=== PATIENT | female | born 1975 | race Caucasian/White ===

== ENCOUNTER 2023-11-13 17:41 | Observation (INO) ==
--- NOTE | 2023-11-13 17:51 | ED Triage Note ---
Date of Service November 13, 2023 Provider in Triage Author: William Rushing. History of Present Illness This patient was briefly evaluated while in triage. An abbreviated physical exam was performed. This patient is a 48-year-old Female who presents to the ED for evaluation of sudden onset chest pain that radiated to the back with nausea. started when she was driving to dinner. 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 Physical Exam CONSTITUTIONAL: mildly uncomfortable SKIN: pink, warm, dry CARDIAC: regular rate and rhythm RESPIRATORY: in no respiratory distress, lungs clear to auscultation ABDOMEN: mild epigastric tenderness Initial orders for labs and / or imaging were placed and patient was placed in the waiting area until a bed is available. Please see further documentation for the full ED course.
[2023-11-13] MEDS: NITROGLYCERIN SL 0.4 MG/TAB TAB SL STA (18:03)
[2023-11-13] MEDS: NITROGLYCERIN SL 0.4 MG/TAB TAB ONE (18:03)
[2023-11-13] MEDS: ASPIRIN CHEW 324 MG PO STA (18:04)
[2023-11-13 18:30] LABS: Basophils # (auto) 0.06 K/uL (0.00-0.20); Basophils % (auto) 0.8 %; Eosinophils # (auto) 0.35 K/uL (0.00-0.50); Eosinophils % (auto) 4.4 %; Hematocrit (blood only) 38.2 % (37.0-47.0); Hemoglobin 13.3 g/dl (12.0-16.0); Immature Granulocytes # (auto) 0.01 K/uL (0.01-0.20); Immature Granulocytes % (auto) 0.1 %; Lymphocytes # (auto) 2.59 K/uL (1.20-3.40); Lymphocytes % (auto) 32.6 %; Mean Corpuscular Hemoglobin 33.3 pg (25.0-34.0); Mean Corpuscular Hgb Conc 34.8 g/dL (32.0-36.0); Mean Corpuscular Volume 95.5 fL (80.0-100.0); Mean Platelet Volume 9.7 fL (9.4-12.4); Monocytes # (auto) 0.57 K/uL (0.11-0.59); Monocytes % (auto) 7.2 %; Neutrophils # (auto) 4.37 K/uL (1.40-6.50); Neutrophils % (auto) 54.9 %; Platelet Count 297 K/uL (130-400); RDW Coefficient of Variation 11.3 % (11.5-14.5); RDW Standard Deviation 39.7 fL (36.4-46.3); White Blood Count 7.95 K/ul (4.8-10.8)
[2023-11-13 18:43] LABS: Pregnancy Test, Serum Negative (Negative)
--- NOTE | 2023-11-13 18:51 | XRay Report ---
XR chest 1V portable HISTORY: central chest pain COMPARISON: None. FINDINGS: The lungs are clear. Cardiac silhouette is normal in size. No pleural effusions. No pneumot horax. IMPRESSION: No acute process. ACT 112: Negative or not required by law. Electronically signed by: Colton Keith M.D. 11/13/2023 6:50 PM
[2023-11-13 18:52] LABS: Alanine Aminotransferase 18 U/L (7-52); Albumin Level 4.7 gm/dl (3.4-5.0); Alkaline Phosphatase 41 U/L (34-104); Anion Gap 10 (3-11); Aspartate Aminotransferase 22 U/L (13-39); BUN Creatinine Ratio 38.8 (10-20); Bilirubin,Total 0.3 mg/dl (0.2-1.0); Blood Urea Nitrogen 26 mg/dl (6-23); Calcium 9.2 mg/dl (8.6-10.3); Carbon Dioxide 26 mmol/L (21-32); Chloride 102 mmol/L (98-107); Creatinine Clr Calc Pharmacy 96.7 ml/min; Est GFR (African American) 121.3 ml/min; Est GFR (Non-African American) 104.7 ml/min; Globulin 2.4 gm/dl (2.5-4.0); Glucose 112 mg/dl (70-99(Fasting)); Lipase 48 U/L (11-82); Potassium 3.1 mmol/L (3.5-5.1); Sodium 138 mmol/L (136-145); Total Protein 7.1 gm/dl (6.0-8.3)
[2023-11-13 18:58] LABS: D Dimer 340 ug/L FEU (0-500); Partial Thromboplastin Ratio 0.8; Partial Thromboplastin Time 22 Seconds (21-31); Prothrombin Time 11.1 Seconds (9.0-12.0); Troponin I High Sensitivity < 2.3 pg/ml (0-14)
[2023-11-13] MEDS ORDERED: ACETAMINOPHEN 325 MG TAB PO PRN (20:05)
--- NOTE | 2023-11-13 20:49 | History & Physical Report ---
Date of Service November 13, 2023 Assessment & Plan (1) Chest pain: Plan: 48 year old for mari female with history fo WPW syndrome, prothrombin gene mutation, presenting with chest pain earlier today. Chest pain History of WPW syndrome Rule out ACS history of CAD, maternal grandfather, age early 50s Reports chest pain was relieved by sublingual nitro given at the ER troponin x 1 negative, second troponin pending EKG no signs of acute ischemia or infarct Echocardiogram: pending Cardiology consultation Rule out pulmonary embolus history of prothrombin gene mutation CT Angio chest to rule out PE IV NSS possible GERD? Protonix 40mg daily Hypokalemia p.o. potassium ordered DVT prophylaxis SCDs for now Lovenox SC if patient staying longer in the hospital Disposition Lives at home with family plan of care discussed with patient and her in detail and at length all questions answered they are understanding, agreeable, comfortable with the plan of care History of Present Illness Chief Complaint: sudden onset chest pain Earlier today Primary Care Provider: Katja Amor DO 48 year old for mari female with history fo WPW syndrome, prothrombin gene mutation, presenting with chest pain earlier today. As a background, patient has WPW syndrome for which an EP study was done in 2016 which suggested that the accessory bypass tract conduction was benign. She follows with Dr. Davis and Dr. Best at the [facility] [address] cardiology clinic. As per patient, she normally has episodes of few seconds of palpitations daily without any accompanying symptoms. Earlier this evening, while preparing to leave the house, patient had a sudden onset of severe lower midsternal chest discomfort- sharp/pressure, associated with shortness of breath, nausea and dizziness to the point that she felt she was going to pass out. As the symptoms did not improve after about 10 minutes, the patient was brought to the ER for evaluation. At the ER, patient received with Blood pressure of 109/71, heart rate 65. EKG no signs of acute ischemia or infarct Troponin negative She was given 1 dose of sublingual nitro which relieved the chest pain. She also received aspirin 2024 mg. On exam, patient seen resting in bed, sitting up, comfortable,not in distress. She denies active chest pain, shortness of breath, palpitations, dizziness, nausea, abdominal pain during my interview. Of noted, the patient reports that she has been taking 2-3 doses of naproxen for the past 3 to 4 days for menstrual cramping and headache. Allergies Allergy/AdvReac Type Severity Reaction Status Date / Time No Known Allergies Allergy Unverified 11/13/23 20:07 Home Medications Medication Instructions Recorded Confirmed Type cetirizine 10 mg tablet (Zyrtec) 10 mg PO DAILY PRN allergies 11/13/23 11/13/23 History multivitamin-ferrous 1 tab PO DAILY 11/13/23 11/13/23 History fumarate-folic acid 18 mg-400 mcg tablet (Centrum) naproxen sodium 220 mg tablet 440 mg PO BID PRN Pain 11/13/23 11/13/23 History (Aleve) sertraline 50 mg tablet 50 mg PO DAILY 11/13/23 11/13/23 History Past Med/Surg History Problem List (Updated 11/13/23 @ 21:19 by Brian Henriquez MD) Chest pain Social History Smoking Status: Never smoker Preferred Language: Serbian Feels Safe at Home: Yes Review of Systems Review of Systems: all noted and negative except for above Physical Exam Physical Exam: General- oriented x 3, not in distress, speaks in sentences with no effort or accessory muscle use Head- atraumatic Eyes- PERRL, EOMI, anicteric ENT- oropharynx clear Neck- supple, no JVD, no adenopathy, no thyromegaly; carotids +2/2, no bruits appreciated Lungs- clear to auscultation bilaterally, no rales/wheezes Heart- normal rate, regular rhythm; no murmur, no gallop, no rub appreciated Abdomen- normal bowel sounds, nondistended, soft, nontender, no masses or hepatosplenomegaly Extremities- no pretibial edema, no calf tenderness; peripheral pulses intact Neuro- alert, oriented x 3; CN 2-12 grossly intact; motor 5/5 bilaterally;sensation 100% on all extremities; no other gross focal neurologic deficits Skin- warm & dry Results & Data Results & Data Vital Signs (Past 12 Hours) Vital Signs Temp Pulse Resp BP Pulse Ox O2 Del Method 11/13/23 19:48 60 13 100/48 L 100 Room Air 11/13/23 19:15 59 L 15 100 11/13/23 19:14 92/66 L 11/13/23 18:48 56 L 15 97 Room Air 11/13/23 18:33 59 L 15 100 11/13/23 18:30 100/68 11/13/23 18:24 59 L 14 100 11/13/23 18:20 74 11/13/23 18:15 94/66 L 100 11/13/23 18:15 59 L 15 100 11/13/23 18:06 74 15 100 11/13/23 17:47 Room Air 11/13/23 17:47 36.3 C L 65 18 109/71 100 Room Air all noted and reviewed including below Code Status & VTE Plan VTE Prophylaxis Plan VTE Prophylaxis will be ordered: Yes
[2023-11-13] MEDS: OPTIRAY 320 125ml IV ONE (21:07)
--- NOTE | 2023-11-13 21:46 | Emergency Department Note ---
History of Present Illness General Chief Complaint: Cardiac Assessment Stated Complaint: CHEST PAINS, NAUSEA, SWEATING, SHAKIING Time Seen by Provider: 11/13/23 17:57 History of Present Illness Provider Complaint: chest pain Onset (ago): minute(s) 20 Duration: constant Onset: during rest Pain Radiation: none Severity: moderate Maximum Pain Intensity: 5 Current Pain Intensity: 3 Quality: + heaviness and + sharp Relieved By: + nothing Exacerbated By: + nothing Context: no recent illness, no recent surgery, no recent immobilization, no recent travel, no trauma/injury or no new medications Associated symptoms: no nausea, no diaphoresis, no dyspnea, no syncope, no palpitations, no fever or no cough Home Medications Medication Instructions Recorded Confirmed Type cetirizine 10 mg tablet (Zyrtec) 10 mg PO DAILY PRN allergies 11/13/23 11/13/23 History multivitamin-ferrous 1 tab PO DAILY 11/13/23 11/13/23 History fumarate-folic acid 18 mg-400 mcg tablet (Centrum) naproxen sodium 220 mg tablet 440 mg PO BID PRN Pain 11/13/23 11/13/23 History (Aleve) sertraline 50 mg tablet 50 mg PO DAILY 11/13/23 11/13/23 History Allergies Allergy/AdvReac Type Severity Reaction Status Date / Time No Known Allergies Allergy Unverified 11/13/23 20:07 Past Med/Surg History Problem List (Updated 11/13/23 @ 21:46 by Silver Cheatham MD) Chest pain (Acute) Medical History WPW (Shaoz-Yzbopwvtm-Javbg syndrome) Social History Smoking Status: Never smoker Preferred Language: Romanian Feels Safe at Home: Yes Physical Exam Vital Signs Vital Signs - 24 hr 11/13/23 17:47 11/13/23 17:47 11/13/23 18:06 Temperature 36.3 C L Temperature Source Temporal Artery Scan Pulse Rate 65 74 Pulse Rate from SpO2 Sensor 75 Pulse Rhythm Regular Pulse Strength Normal Respiratory Rate 18 15 Respiratory Effort / Characteristics Non-Labored Spontaneous Respiratory Depth Normal Respiratory Pattern Regular Blood Pressure 109/71 Blood Pressure Mean 83 Blood Pressure Position Sitting Pulse Oximetry 100 100 Oxygen Delivery Method Room Air Room Air Sepsis Recent Fever Within 48 Hours No Sepsis New/Unexplained Change in Mental Status No Sepsis Action Taken by Nursing No Action Required 11/13/23 18:15 11/13/23 18:15 11/13/23 18:20 Temperature Temperature Source Pulse Rate 59 L 74 Pulse Rate from SpO2 Sensor 58 L Pulse Rhythm Pulse Strength Respiratory Rate 15 Respiratory Effort / Characteristics Respiratory Depth Respiratory Pattern Blood Pressure 94/66 L Blood Pressure Mean 79 Blood Pressure Position Pulse Oximetry 100 100 Oxygen Delivery Method Sepsis Recent Fever Within 48 Hours Sepsis New/Unexplained Change in Mental Status Sepsis Action Taken by Nursing 11/13/23 18:24 11/13/23 18:30 11/13/23 18:33 Temperature Temperature Source Pulse Rate 59 L 59 L Pulse Rate from SpO2 Sensor 58 L 57 L Pulse Rhythm Pulse Strength Respiratory Rate 14 15 Respiratory Effort / Characteristics Respiratory Depth Respiratory Pattern Blood Pressure 100/68 Blood Pressure Mean 81 Blood Pressure Position Pulse Oximetry 100 100 Oxygen Delivery Method Sepsis Recent Fever Within 48 Hours Sepsis New/Unexplained Change in Mental Status Sepsis Action Taken by Nursing 11/13/23 18:48 11/13/23 19:14 11/13/23 19:15 Temperature Temperature Source Pulse Rate 56 L 59 L Pulse Rate from SpO2 Sensor 56 L 58 L Pulse Rhythm Pulse Strength Respiratory Rate 15 15 Respiratory Effort / Characteristics Respiratory Depth Respiratory Pattern Blood Pressure 92/66 L Blood Pressure Mean 73 Blood Pressure Position Pulse Oximetry 97 100 Oxygen Delivery Method Room Air Sepsis Recent Fever Within 48 Hours Sepsis New/Unexplained Change in Mental Status Sepsis Action Taken by Nursing 11/13/23 19:48 Temperature Temperature Source Pulse Rate 60 Pulse Rate from SpO2 Sensor 61 Pulse Rhythm Pulse Strength Respiratory Rate 13 Respiratory Effort / Characteristics Respiratory Depth Respiratory Pattern Blood Pressure 100/48 L Blood Pressure Mean 65 Blood Pressure Position Pulse Oximetry 100 Oxygen Delivery Method Room Air Sepsis Recent Fever Within 48 Hours Sepsis New/Unexplained Change in Mental Status Sepsis Action Taken by Nursing Physical Exam GENERAL: oriented to person, place, and time. appears well-developed and well- nourished. HENT: Exam performed. - Head: Normocephalic and atraumatic. EYES: Conjunctivae and EOM are normal. Right eye exhibits no discharge. Left eye exhibits no discharge. No scleral icterus. NECK: Normal range of motion. Neck supple. No JVD present. CV: Normal rate, regular rhythm, normal heart sounds and intact distal pulses. There is no peripheral edema. Palpable radial pulses bue. PULM/CHEST: Effort normal and breath sounds normal. No respiratory distress. No stridor. no wheezes. no rales. ABD: The abdomen is soft. There is no tenderness. NEURO: Motor and sensation grossly intact. SKIN: Skin is warm and dry. He is not diaphoretic. PSYCH: normal mood and affect. Behavior is normal. Judgment and thought content normal. Course Course 1756: The patient was evaluated in room B1. A complete history and physical exam was performed Cardiac monitoring: An order was placed for continuous cardiac monitoring. The monitor shows a rate of 60 with sinus rhythm interpreted by me 1810: Vital signs stable. Chest pain resolved status post 1 sublingual nitroglycerin. EKG viewed by me does not show any STEMI. Discussed with Dr. Fong interventional cardiology via Silvis text and he is in agreement no STEMI. 1939: Vital signs stable. Labs and imaging within normal limits including negative chest x-ray D-dimer troponin. Patient be admitted for rule out ACS given her acute onsets of chest pain and resolvent of systems with nitroglycerin. [facility] hospitalist team will be made aware. Administered Medications Discontinued Medications Aspirin (Aspirin Chew 324 Mg) 324 mg PO NOW STA Stop: 11/13/23 18:02 Last Admin: 11/13/23 18:04 Dose: 324 mg Documented By: HAIDER Ioversol (Optiray 320 125ml) 117 ml IV ONCE ONE Stop: 11/13/23 21:06 Last Admin: 11/13/23 21:07 Dose: 117 ml Documented By: YOBANI Nitroglycerin (Nitroglycerin Sl 0.4 Mg/Tab Tab) 0.4 mg SL NOW STA Stop: 11/13/23 18:02 Last Admin: 11/13/23 18:03 Dose: 0.4 mg Documented By: HAIDER Nitroglycerin (Nitroglycerin Sl 0.4 Mg/Tab Tab) Confirm Administered Dose 0.4 mg .ROUTE .STK-MED ONE Stop: 11/13/23 18:02 Last Admin: 11/13/23 18:03 Dose: Not Given Documented By: HAIDER Medical Decision Making Laboratory Data Attestation: I reviewed the patient's lab results. 11/13/23 18:04 11/13/23 18:04 Labs: Lab Results 11/13/23 11/13/23 Range/Units 18:04 20:11 WBC 7.95 (4.8-10.8) K/ul RBC 4.00 L (4.20-5.40) M/uL Hgb 13.3 (12.0-16.0) g/dl Hct 38.2 (37.0-47.0) % MCV 95.5 (80.0-100.0) fL MCH 33.3 (25.0-34.0) pg MCHC 34.8 (32.0-36.0) g/dL RDW Std Deviation 39.7 (36.4-46.3) fL RDW Coeff of Skylar 11.3 L (11.5-14.5) % Plt Count 297 (130-400) K/uL MPV 9.7 (9.4-12.4) fL Immature Gran % (Auto) 0.1 % Neut % (Auto) 54.9 % Lymph % (Auto) 32.6 % Eaton % (Auto) 7.2 % Eos % (Auto) 4.4 % Baso % (Auto) 0.8 % Neut # (Auto) 4.37 (1.40-6.50) K/uL Lymph # (Auto) 2.59 (1.20-3.40) K/uL Eaton # (Auto) 0.57 (0.11-0.59) K/uL Eos # (Auto) 0.35 (0.00-0.50) K/uL Baso # (Auto) 0.06 (0.00-0.20) K/uL Immature Gran # (Auto) 0.01 (0.01-0.20) K/uL PT 11.1 (9.0-12.0) Seconds INR 1.0 (0.9-1.1) APTT 22 (21-31) Seconds PTT Ratio 0.8 D-Dimer 340 (0-500) ug/L FEU Sodium 138 (136-145) mmol/L Potassium 3.1 L (3.5-5.1) mmol/L Chloride 102 (98-107) mmol/L Carbon Dioxide 26 (21-32) mmol/L Anion Gap 10 (3-11) BUN 26 H (6-23) mg/dl Creatinine 0.67 (0.6-1.2) mg/dl Est Cr Clr Drug Dosing 96.7 ml/min Est GFR ( Amer) 121.3 ml/min Est GFR (Non-Af Amer) 104.7 ml/min BUN/Creatinine Ratio 38.8 H (10-20) Glucose 112 H (70-99(Fasting)) mg/dl Calcium 9.2 (8.6-10.3) mg/dl Total Bilirubin 0.3 (0.2-1.0) mg/dl AST 22 (13-39) U/L ALT 18 (7-52) U/L Alkaline Phosphatase 41 (34-104) U/L Troponin I High Sens < 2.3 < 2.3 (0-14) pg/ml Total Protein 7.1 (6.0-8.3) gm/dl Albumin 4.7 (3.4-5.0) gm/dl Globulin 2.4 L (2.5-4.0) gm/dl Albumin/Globulin Ratio 2.0 (0.9-2) Lipase 48 (11-82) U/L HCG, Qual Negative (Negative) Imaging Data Chest x-ray: Attestation: I personally reviewed and interpreted this imaging study as follows: My impression: Chest x-ray negative. Airway clear. No pneumothorax. No consolidation. No cardiomegaly or cephalization.. No free air under the diaphragm. No fractures of the skeletal structures. Radiologist's impression: XR chest 1V portable HISTORY: central chest pain COMPARISON: None. FINDINGS: The lungs are clear. Cardiac silhouette is normal in size. No pleural effusions. No pneumothorax. IMPRESSION: No acute process. ACT 112: Negative or not required by law. Electronically signed by: Colton Keith M.D. 11/13/2023 6:50 PM Dictated: 11/13/231848 Transcribed: 11/13/231848 ECG Data Attestation: I personally reviewed and interpreted this ECG as follows: Additional Comments: EKG #1 at 1754: Sinus rhythm with a rate of 56. CT 200 QRS [address] elevation or ST depression. WPW delta wave present. EKG #2 at 1800: Sinus rhythm with a rate of 61. CT 190 QRS [address] elevation or ST depression. WPW delta wave present. [facility] Narrative 1757: The patient was evaluated in room B1. A complete history and physical exam was performed Cardiac monitoring: An order was placed for continuous cardiac monitoring. The monitor shows a rate of 60 with sinus rhythm interpreted by me 1810: Vital signs stable. Chest pain resolved status post 1 sublingual nitroglycerin. EKG viewed by me does not show any STEMI. Discussed with Dr. Fong interventional cardiology via Silvis text and he is in agreement no STEMI. 1939: Vital signs stable. Labs and imaging within normal limits including negative chest x-ray D-dimer troponin. Patient be admitted for rule out ACS given her acute onsets of chest pain and resolvent of systems with nitroglycerin. [facility] hospitalist team will be made aware. Impression & Plan Chest pain Discharge Plan Visit Data Chief Complaint: Cardiac Assessment Stated Complaint: CHEST PAINS, NAUSEA, SWEATING, SHAKIING ED Provider: Silver Cheatham Discharge Problem: Chest pain Patient Disposition: Being Evaluated by Hospitalist Forms Stand Alone Forms: [facility] Prescriptions Prescriptions: No Action cetirizine [Zyrtec] 10 mg Tablet 10 mg PO DAILY PRN (Reason: allergies) naproxen sodium [Aleve] 220 mg Tablet 440 mg PO BID PRN (Reason: Pain) sertraline 50 mg tablet 50 mg PO DAILY Centrum 18-400 mg-mcg Tablet 1 tab PO DAILY Referrals Referrals: Katja Amor DO [Primary Care Provider] - Discharge Problem: Chest pain Qualifiers: Chest pain type: unspecified Qualified Code(s): R07.9 - Chest pain, unspecified
[2023-11-13] MEDS ORDERED: SODIUM CHLORIDE 0.9% 1,000 ML IV SCH (21:52)
--- NOTE | 2023-11-13 22:22 | CT Scan Report ---
CT angio chest PE protocol CLINICAL HISTORY: PE TECHNIQUE: Multidetector row helical CT of the chest was performed with angiographic protocol. Francisco l and sagittal reformations were obtained. Coronal and sagittal MIPS were obtained from the axial quincy a set and were submitted for review. Automated dose lowering techniques and/or adjustment according to patient size were utilized for this exam. CT DOSE: 461.61 mGy.cm Comparison: Comparison is made to chest radiograph 11/13/2023 FINDINGS: Lungs and pleura: Normal. Heart and pericardium: Heart size is normal. No pericardial effusion. Vessels: No evidence of pulmonary embolism. Mediastinum and criss: Unremarkable. Chest wall and lower neck: Unremarkable. Abdomen: Unremarkable. Bones: Degenerative changes in the thoracic spine. IMPRESSION: No acute abnormality and in particular no evidence of pulmonary embolus. ACT 112: Negative or not required by law. Electronically signed by: Gabriele Ronquillo M.D. 11/13/2023 10:19 PM
[2023-11-13] MEDS: POTASSIUM CHLORIDE CRTAB 20 MEQ TABCR PO STA (22:30)
[2023-11-13] MEDS: PANTOprazole 40 MG TAB PO STA (22:30)
[2023-11-13] MEDS: NSS + 20MEQ KCL 20 MEQ/1,000 ML BAG IV SCH (22:30)
--- OUTSIDE RECORDS SUMMARY | 2023-11-13 23:09 | External Medical Summary | Continuity of Care Document ---
Author Name Unknown Organization [facility] [address] [place], [place] [address] Address [address] [place] [id number] Care Team Providers Care Supervisor Rough End Name Role Phone Katja Amor Primary Care Physician [phone] Encounter [facility] [id number] Date(s): 08/10/23 - 08/10/23 [facility] [address] [id number] [facility] [address] [place], [place] [id number] Encounter Diagnosis Carpal tunnel syndrome, bilateral(Discharge Diagnosis) - 08/10/23 Cubital tunnel syndrome, bilateral(Discharge Diagnosis) - 08/10/23 Discharge Disposition: Home or Self Care Attending Physician: MD Brizuela Paul K Allergies, Adverse Reactions, Alerts No Known Allergies Assessment and Plan Extracted from: Title:Jeffrey Birzuela Author:Rob Grimes Date:08/10/23 IMPRESSION:48 Yearsold Femalewith b/l carpal tunnel syndrome and suspected cubital tunnel syndrome PLAN: - I ordered an EMG/NCS of the b/l upper extremities to further evaluate carpal/ cubital tunnel. - I discussed that surgical intervention may be needed pending the EMG result. -Follow up after EMG results Medications No Known Medications Mental Status 08/10/23 Barriers to Learning one year None evide nt Mandatory Health Literacy Documentation Yes Health Literacy Communication Barriers N ever Primary Language Spanish Problem List Condition Confirmation Course Effective Dates Status Health St atus Informant Hip pain, left Confirmed Active Knee pain, left Confirmed Active Diagnosis Diagnosis Type Effective Dates Health Status Cl inical Service Informant Cubital tunnel syndrome, bilateral Discharge Diagnosis 08/10/23 Carpal tunnel syndrome, bilateral Discharge Diagnosis 08/10/23 Social History Social History Type Response Smoking Status Never smoked cigaret nelson Sex Female Ortho Outpt Note * MD Brizuela Paul K: MODIFY MD Brizuela Paul K: MODIFY, MODIFY Event Display: Ortho Outpt Note Authored Date: [id number] Chief Complaint b/l wrist numbness/ tingling History of Present Illness [id number] yearold Mono presents today forevaluation of her b/l hand symptoms. She has b/l hand numbness starting 16 years ago. She has continued to have these issues and notices increase in symptoms when . She notices symptoms throughout her daily activities. 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 She has cramping when attempting to write. The numbness is primarily in the first4 fingers (thumb through ring). She has no history of Thyroid disorders or DM. Review of Systems A 14 point review of systems isavailable in the EMR. Physical Exam Focus on the bilateral upper extremity: No skin lesions Mild thenar atrophy left more than right No hypothenar atrophy Sensation intact to light touch throughout RIGHT: + Tinel's at the carpal tunnel Elbow flexion test causes median nerve symptoms, no ulnar nerve symptoms + Tinel's at the cubital tunnel LEFT: + Tinel's at the carpal tunnel Decreased sensation in the ulnar nerve distribution No ulnar nerve subluxation at the elbow Elbow flexion test causes median nerve symptoms, no ulnar nerve symptoms + Tinel's at the cubital tunnel Diagnostic Results I obtained and personally interpreted 4 views of both wrist which shows no fractures, no ligament instability and no arthritis. Assessment/Plan IMPRESSION:48 YearsoldFejess b/l carpal tunnel syndrome and suspected cubital tunnel syndrome PLAN: - I ordered an EMG/NCS of the b/l upper extremities to further evaluate carpal/ cubital tunnel. - I discussed that surgical intervention may be needed pending the EMG result. -Follow up after EMG results Attestation Rob Palacios, scribing for and in the presence of, Jeffrey Brizuela, on this date,08/10/2023 09:28:06. Problem List/Past Medical History Ongoing Hip pain, left Knee pain, left Allergies NKA Social History Smoking Status Never smoked cigarettes Recommendations Health Maintenance Pending(in the next year) OverDue Adult Influenza Vaccine due12/11/22and every 1year Due Adult COVID-19 Vaccination due08/10/23Unknown Frequency Adult Social Determinants of Health Screening due08/10/23Unknown Frequency Adult Tdap/Td Vaccine due08/10/23Unknown Frequency Breast Cancer Screening due08/10/23Unknown Frequency Cervical Cancer Screening due08/10/23Unknown Frequency Colorectal Cancer Screening due08/10/23Unknown Frequency Hepatitis C Screening due08/10/23One-time only Lipid Screening due08/10/23Unknown Frequency Due In Future Body Mass Index not due until05/05/24and every 366day Satisfied(in the past 1 year) Satisfied Body Mass Index on05/05/23.Satisfied by ISA Schmidt [place] Electronic Signature on File Electronically Reviewed/Signed by: oRb Grimes Author Signature Dt/Tm:08/10/2023 10:43 AM Electronically Reviewed/Signed by: Jeffrey Brizuela MD Cosigner Signature Dt/Tm: 08/10/2023 12:50PM Division of Sports Medicine DS Patient Care team information Care Team Personnel Name: DO Amor Laura M Position: Referring DIRECT Member Role: Primary Care Provider Address: Address: [facility] [address] [place] [address] Care Team Related Persons Name: ROSINAMECHELLE HELENA Address: home [address] [place] [id number]
--- NOTE | 2023-11-14 06:58 | Cardiology Consultation ---
Date of Consultation November 14, 2023 Assessment & Plan (1) Pericarditis: (2) Chest pain: (3) WPW (Zrbqw-Cwwpleuum-Veupi syndrome): Plan IMPRESSION: 48-year-old female with history of Wtwho-Hqbtbkaxs-Ktymu with prior EP study, no ablation presents with new onset chest pain EKG revealing sinus bradycardia in the mid 50s with a short IL interval and delta wave. EKG unchanged from 2017. 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 -Monitor on telemetry while inpatient. -Recommend potassium goal of 4.0 and mag goal of 2.0. -Echo pending -Repeat outpatient ZIO monitor. -Current chest discomfort is reproducible with palpation however symptoms are different than what she experienced yesterday, questionable musculoskeletal component to some of her discomfort. Case discussed with Dr. Spears. Further recommendations pending assessment. I spent a total of 60 minutes on the date of service in preparation, delivery, and documentation of the care provided to the patient excluding any time spent in the performance of separately billed services. NORA Lazaro Department of Cardiology, [facility] This chart was completed in part utilizing Speech Voice Recognition Software. Grammatical errors, random word insertions, pronoun errors, and incomplete sentences are an occasional consequence of this system due to software limitations, ambient noise, and hardware issues. Any formal questions or concerns about the content, text, or information contained within the body of this dictation should be directly addressed to the provider for clarification. Supervising Physician Co-Signing Physician Notes I have personally performed a history and physical examination on the patient. I have reviewed the advance practitioner's documentation, and I agree with, and take responsibility for the plan of care. 48-year-old female admitted with acute chest discomfort. Pain severe, sharp, substernal discomfort improved since admission. Continues to note a dull ache that is somewhat reproducible with palpation. Echocardiogram demonstrating trivial loculated anterior pericardial effusion. Findings suggest acute pericarditis. Lab assessment including CRP, Lyme screen, viral panel, TSH, SAVITA, and rheumatoid factor ordered. Recommend treatment with taper of NSAIDs and colchicine 0.6 mg once daily. Ibuprofen taper: 600 mg 3 times daily for 2 days then reduce dose to 400 mg 3 times daily for 3 days, followed by 400 mg twice daily for 3 days, reduce dose to 200 mg twice daily for 3 days then discontinue. Continue colchicine daily for 3 months. Outpatient cardiology follow-up in 5 to 7 days. I spent a total of 40 minutes on the date of service in preparation, delivery, and documentation of the care provided to this patient, excluding any time spent in the performance of separately billed services. History of Present Illness Reason for Consultation: Chest pain Requesting Physician: [facility] Attending Physician: Brian Henriquez MD History of Present Illness 48-year-old female who presented to [facility] emergency department yesterday after an episode of chest discomfort. Notes that she was in her normal state of health yesterday morning and afternoon. Did a Peloton workout with cardio and light weight training. She does this a few days per week. Later that evening she was driving to dinner and developed a sudden onset of chest discomfort that occurred in the middle of her chest that radiated to her back with nausea and slight SOB. At the time she was a little lightheaded and felt as though she may pass out. She denied noticing any palpitations at the time however it is not unusual for her to have daily palpitations/fluttering. Symptoms are sometimes worse with exercise. Labs: CBC unremarkable. Renal function stable. Potassium low at 3.1. High-sensitivity troponin negative x 2. CTA of the chest without evidence of PE EKG: Sinus bradycardia 56 bpm with short IL interval and delta wave, unchanged from prior EKG in 2017. Echo: Pending Telemetry: SR 60s 11/14/2023: Upon entrance to the room patient resting comfortably in bed. Continues to have slight chest heaviness. If she presses on the spot in her chest it is somewhat tender. No shortness of breath. Did have palpitations last evening. None this morning. No lightheadedness or dizziness. No orthopnea, PND, or increased lower extremity edema. No fever, chills, cough, hematochezia, melena, or hemoptysis. Past medical history: Palpitations Ihhmu-Lwqkerbti-Pzafc syndrome; status post EP study--conduction both antegrade and retrograde along the pathway, felt to be benign and ablation was not warranted at that time (per Dr. Best's outpatient note 2016) History of vasovagal syncope Prothrombin gene mutation Family history of coronary disease Allergies Allergy/AdvReac Type Severity Reaction Status Date / Time No Known Allergies Allergy Unverified 11/13/23 20:07 Home Medications Medication Instructions Recorded Confirmed Type cetirizine 10 mg tablet (Zyrtec) 10 mg PO DAILY PRN allergies 11/13/23 11/13/23 History multivitamin-ferrous 1 tab PO DAILY 11/13/23 11/13/23 History fumarate-folic acid 18 mg-400 mcg tablet (Centrum) naproxen sodium 220 mg tablet 440 mg PO BID PRN Pain 11/13/23 11/13/23 History (Aleve) sertraline 50 mg tablet 50 mg PO DAILY 11/13/23 11/13/23 History Patient History Medical History WPW (Ngyyl-Iphzlxujs-Crjvz syndrome) Social History Smoking Status: Never smoker Hx Alcohol Use: No Hx Substance Use: No Preferred Language: Tajik Communication Ability: Effective [employer] Required: No Beliefs That Will Affect Care: None Current Living Situation: Spouse Feels Safe at Home: Yes Safety Concerns: Feels Safe At This Time Assistive Devices: None Review of Systems Review of Systems: All systems reviewed & are unremarkable except as noted in HPI & below Physical Exam Constitutional: WD/WN, vitals as above no acute distress Eyes: PERRL, conjunctivae normal, anicteric sclerae ENMT: external ear and nose normal, oropharynx normal Neck: normal visual inspection and trachea midline Respiratory: normal respiratory effort, lungs clear to auscultation Cardiovascular: RRR, no murmur, no edema Heart Sounds: normal S1 and normal S2; no murmur Vessels: no JVD Gastrointestinal (Abdomen): normal bowel sounds, soft, nontender, no hepatosplenomegaly Skin: no rashes, warm and dry Neurologic: PERRL, EOMI, accommodation nl, no face palsy, no dysarthria Psychiatric: A+Ox3, euthymic affect Results & Data Vital Signs (Past 12 Hours) Vital Signs Temp Pulse Pulse Pulse Resp BP BP 11/14/23 02:27 36.8 C 56 L 16 96/61 L 11/14/23 00:07 11/14/23 00:05 36.7 C 61 18 117/74 11/14/23 00:00 67 11/13/23 22:52 36.4 C L 77 18 114/69 11/13/23 22:15 74 11/13/23 19:48 60 13 100/48 L 11/13/23 19:15 59 L 15 11/13/23 19:14 92/66 L Pulse Ox O2 Del Method 11/14/23 02:27 97 Room Air 11/14/23 00:07 Room Air 11/14/23 00:05 99 Room Air 11/14/23 00:00 11/13/23 22:52 99 Room Air 11/13/23 22:15 11/13/23 19:48 100 Room Air 11/13/23 19:15 100 11/13/23 19:14 Laboratory Results Cardiac Enzymes 11/13/23 11/13/23 Range/Units 18:04 20:11 AST 22 (13-39) U/L Troponin I High Sens < 2.3 < 2.3 (0-14) pg/ml Coagulation 11/13/23 Range/Units 18:04 PT 11.1 (9.0-12.0) Seconds APTT 22 (21-31) Seconds CBC 11/13/23 Range/Units 18:04 WBC 7.95 (4.8-10.8) K/ul RBC 4.00 L (4.20-5.40) M/uL Hgb 13.3 (12.0-16.0) g/dl Hct 38.2 (37.0-47.0) % Plt Count 297 (130-400) K/uL Neut # (Auto) 4.37 (1.40-6.50) K/uL Lymph # (Auto) 2.59 (1.20-3.40) K/uL Fleming # (Auto) 0.57 (0.11-0.59) K/uL Eos # (Auto) 0.35 (0.00-0.50) K/uL Baso # (Auto) 0.06 (0.00-0.20) K/uL Comprehensive Metabolic Panel 11/13/23 Range/Units 18:04 Sodium 138 (136-145) mmol/L Potassium 3.1 L (3.5-5.1) mmol/L Chloride 102 (98-107) mmol/L Carbon Dioxide 26 (21-32) mmol/L BUN 26 H (6-23) mg/dl Creatinine 0.67 (0.6-1.2) mg/dl Glucose 112 H (70-99(Fasting)) mg/dl Calcium 9.2 (8.6-10.3) mg/dl AST 22 (13-39) U/L ALT 18 (7-52) U/L Alkaline Phosphatase 41 (34-104) U/L Total Protein 7.1 (6.0-8.3) gm/dl Albumin 4.7 (3.4-5.0) gm/dl Intake and Output 11/13/23 11/14/23 11/14/23 22:59 06:59 14:59 Other: Other Intake Source sips # Unmeasured Voids 1 Weight 68.9 kg Weight Measurement Method Built in [facility] Diagnostic Findings Echo 11/14/2023: Pending (1) Pericarditis Pericarditis type: idiopathic Chronicity: acute Qualified Code(s): I30.0 - Acute nonspecific idiopathic pericarditis (2) Chest pain Chest pain type: unspecified Qualified Code(s): R07.9 - Chest pain, unspecified
[2023-11-14] MEDS: PANTOprazole 40 MG TAB PO SCH (08:02)
[2023-11-14] MEDS: SERTRALINE HCL 50 MG TABLET PO SCH (08:02)
[2023-11-14 09:18] LABS: Hemoglobin 12.3 g/dl (12.0-16.0); Mean Corpuscular Hemoglobin 33.2 pg (25.0-34.0); Mean Corpuscular Hgb Conc 34.2 g/dL (32.0-36.0); Mean Corpuscular Volume 97.3 fL (80.0-100.0); Mean Platelet Volume 9.6 fL (9.4-12.4); Platelet Count 243 K/uL (130-400); RDW Coefficient of Variation 11.7 % (11.5-14.5); RDW Standard Deviation 41.5 fL (36.4-46.3); White Blood Count 6.76 K/ul (4.8-10.8)
[2023-11-14 09:34] LABS: Anion Gap 4 (3-11); Blood Urea Nitrogen 17 mg/dl (6-23); Calcium 8.4 mg/dl (8.6-10.3); Carbon Dioxide 26 mmol/L (21-32); Chloride 110 mmol/L (98-107); Creatinine Clr Calc Pharmacy 102.8 ml/min; Est GFR (African American) 123.8 ml/min; Est GFR (Non-African American) 106.8 ml/min; Glucose 129 mg/dl (70-99(Fasting)); Potassium 4.1 mmol/L (3.5-5.1); Sodium 140 mmol/L (136-145)
[2023-11-14 12:32] LABS: C Reactive Protein < 0.50 mg/dl (0-0.5)
[2023-11-14 12:51] LABS: Thyroid Stimulating Hormone 1.071 uIu/ml (0.300-4.500)
[2023-11-14] MEDS: COLCHICINE 0.6 MG TAB PO SCH (13:39)
[2023-11-14] MEDS: IBUPROFEN 600 MG TAB PO SCH (13:39)
--- NOTE | 2023-11-14 13:51 | Hospitalist Progress Note ---
Date of Service November 14, 2023 Assessment & Plan (1) Chest pain: Plan: 48 year old pleasant female with history of WPW syndrome, prothrombin gene mutation, presenting with chest pain earlier today. Chest pain Pericarditis History of WPW syndrome history of CAD, maternal grandfather, age early 50s Reports chest pain was relieved by sublingual nitro given at the ER troponin x2 negative EKG no signs of acute ischemia or infarct Echocardiogram noting PFO, "trivial" loculated pericardial effusion Chest CTA no pE Cardiology consultation, appreciate recs -ordered labs in followup: CRP (wnl), Lyme screen (negative), viral panel (negative), TSH (wnl), SAVITA (pending), rheumatoid factor (pending) -Recommending treatment with taper of NSAIDs and colchicine 0.6 mg once daily. -Ibuprofen taper: 600 mg 3 times daily for 2 days then reduce dose to 400 mg 3 times daily for 3 days, followed by 400 mg twice daily for 3 days, reduce dose to 200 mg twice daily for 3 days then discontinue. -Continue colchicine daily for 3 months. -Outpatient cardiology follow-up in 5 to 7 days. Continue PPI while on NSAIDs/colchicine Hypokalemia Replete as needed Diet: HH DVT prophylaxis: Lovenox SQ Dispo: Home once medically stable Admission and Anticipated Discharge Date Admission Date: November 13, 2023 Subjective pt was seen sitting in chair at bedside. States that her chest pain has resolved, denies repeat episodes of sweating and SOB. Review of Systems Review of Systems: All systems reviewed & are unremarkable except as noted in Subjective Physical Exam Physical Exam: General: Alert, oriented. No acute distress Skin: No noted rashes or bruises Psych: Appropriate mood and affect HEENT: NC/AT CV: RRR Resp: Breath sounds clear bilaterally, no increased effort of breathing. Abdomen: Soft, nontender, nondistended. Extremities: No edema in lower extremities bilaterally. Results & Data Results & Data Vital Signs (Past 12 Hours) Vital Signs Temp Pulse Pulse Resp BP Pulse Ox O2 Del Method 11/14/23 12:06 37.0 C 64 18 108/69 97 Room Air 11/14/23 07:51 36.7 C 67 16 94/59 L 98 Room Air 11/14/23 07:00 58 L 11/14/23 02:27 36.8 C 56 L 16 96/61 L 97 Room Air Diagnostic Findings Chest X-Ray 11/13/23 17:47 XR chest 1V portable HISTORY: central chest pain COMPARISON: None. FINDINGS: The lungs are clear. Cardiac silhouette is normal in size. No pleural effusions. No pneumothorax. IMPRESSION: No acute process. ACT 112: Negative or not required by law. Electronically signed by: Colton Keith M.D. 11/13/2023 6:50 PM Chest CTA 11/13/23 20:45 CT angio chest PE protocol CLINICAL HISTORY: PE TECHNIQUE: Multidetector row helical CT of the chest was performed with angiographic protocol. Coronal and sagittal reformations were obtained. Coronal and sagittal MIPS were obtained from the axial data set and were submitted for review. Automated dose lowering techniques and/or adjustment according to patient size were utilized for this exam. CT DOSE: 461.61 mGy.cm Comparison: Comparison is made to chest radiograph 11/13/2023 FINDINGS: Lungs and pleura: Normal. Heart and pericardium: Heart size is normal. No pericardial effusion. Vessels: No evidence of pulmonary embolism. Mediastinum and criss: Unremarkable. Chest wall and lower neck: Unremarkable. Abdomen: Unremarkable. Bones: Degenerative changes in the thoracic spine. IMPRESSION: No acute abnormality and in particular no evidence of pulmonary embolus. ACT 112: Negative or not required by law. Electronically signed by: Gabriele Ronquillo M.D. 11/13/2023 10:19 PM (1) Chest pain Chest pain type: unspecified Qualified Code(s): R07.9 - Chest pain, unspecified
[2023-11-14 15:00] LABS: Adenovirus PCR Not Detected (NotDetected); Bordetella parapertussis PCR Not Detected (NotDetected); Bordetella pertussis PCR Not Detected (NotDetected); Chlamydia pneumoniae PCR Not Detected (NotDetected); Coronavirus 229E PCR Not Detected (NotDetected); Coronavirus CoV-2 (COVID19)PCR Not Detected (NotDetected); Coronavirus HKU1 PCR Not Detected (NotDetected); Coronavirus NL63 PCR Not Detected (NotDetected); Coronavirus OC43PCR Not Detected (NotDetected); Human Metapneumovirus PCR Not Detected (NotDetected); Influenza A PCR Not Detected (NotDetected); Influenza B PCR Not Detected (NotDetected); Mycoplasma pneumoniae PCR Not Detected (NotDetected); Parainfluenza Virus 1 PCR Not Detected (NotDetected); Parainfluenza Virus 2 PCR Not Detected (NotDetected); Parainfluenza Virus 3 PCR Not Detected (NotDetected); Parainfluenza Virus 4 PCR Not Detected (NotDetected); Respiratory Syncytial VirusPCR Not Detected (NotDetected); Rhinovirus/Enterovirus PCR Not Detected (NotDetected)
[2023-11-14] MEDS: ENOXAPARIN INJ 40 MG/0.4 ML SYR SQ SCH (20:21)
--- NOTE | 2023-11-15 06:03 | Electrocardiogram Report ---
Test Reason : Blood Pressure : / mmHG Vent. Rate : 056 BPM Atrial Rate : 056 BPM P-R Int : 200 ms QRS Dur : 080 ms QT Int : 432 ms P-R-T Axes : 181 004 163 degrees QTc Int : 416 ms Sinus bradycardia Ventricular pre-excitation, WPW pattern Abnormal ECG No previous ECGs available Confirmed by Sanchez Srivastava ([id number]) on 11/15/2023 6:02:50 AM Referred By: Katja Amor Confirmed By:Sanchez Srivastava
--- NOTE | 2023-11-15 06:04 | Electrocardiogram Report ---
Test Reason : Blood Pressure : / mmHG Vent. Rate : 061 BPM Atrial Rate : 061 BPM P-R Int : 068 ms QRS Dur : 076 ms QT Int : 420 ms P-R-T Axes : 175 -04 162 degrees QTc Int : 422 ms Sinus rhythm with short AK Ventricular pre-excitation, WPW pattern Anterior infarct (cited on or before 13-NOV-2023) Abnormal ECG When compared with ECG of 13-NOV-2023 17:54, No significant change Confirmed by Sanchez Srivastava ([id number]) on 11/15/2023 6:04:03 AM Referred By: Katja Amor Confirmed By:Sanchez Srivastava
--- NOTE | 2023-11-15 06:05 | Electrocardiogram Report ---
Test Reason : Blood Pressure : / mmHG Vent. Rate : 073 BPM Atrial Rate : 073 BPM P-R Int : 072 ms QRS Dur : 086 ms QT Int : 418 ms P-R-T Axes : 000 -28 170 degrees QTc Int : 460 ms Sinus rhythm with short VT with sinus arrhythmia Ventriculare pre-excitation, WPW pattern Possible Inferior infarct Possible Anterior infarct Abnormal ECG When compared with ECG of 13-NOV-2023 18:00, No significant change Confirmed by Sanchez Srivastava ([id number]) on 11/15/2023 6:05:41 AM Referred By: Katja Amor Confirmed By:Sanchez Srivastava
--- NOTE | 2023-11-15 06:06 | Electrocardiogram Report ---
Test Reason : Blood Pressure : / mmHG Vent. Rate : 057 BPM Atrial Rate : 057 BPM P-R Int : 080 ms QRS Dur : 136 ms QT Int : 504 ms P-R-T Axes : 025 -16 071 degrees QTc Int : 490 ms Sinus bradycardia with short TN Non-specific intra-ventricular conduction block Ventricular pre-excitation, WPW pattern Abnormal ECG When compared with ECG of 13-NOV-2023 20:50, No significant change Confirmed by Sanchez Srivastava ([id number]) on 11/15/2023 6:06:19 AM Referred By: Katja Amor Confirmed By:Sanchez Srivastava
[2023-11-15 06:31] LABS: Basophils # (auto) 0.03 K/uL (0.00-0.20); Basophils % (auto) 0.6 %; Eosinophils # (auto) 0.26 K/uL (0.00-0.50); Eosinophils % (auto) 4.8 %; Hematocrit (blood only) 32.8 % (37.0-47.0); Hemoglobin 11.3 g/dl (12.0-16.0); Immature Granulocytes # (auto) 0.01 K/uL (0.01-0.20); Immature Granulocytes % (auto) 0.2 %; Lymphocytes # (auto) 1.54 K/uL (1.20-3.40); Lymphocytes % (auto) 28.3 %; Mean Corpuscular Hemoglobin 33.5 pg (25.0-34.0); Mean Corpuscular Hgb Conc 34.5 g/dL (32.0-36.0); Mean Corpuscular Volume 97.3 fL (80.0-100.0); Mean Platelet Volume 9.4 fL (9.4-12.4); Monocytes % (auto) 7.3 %; Neutrophils # (auto) 3.21 K/uL (1.40-6.50); Neutrophils % (auto) 58.8 %; Platelet Count 218 K/uL (130-400); RDW Coefficient of Variation 11.8 % (11.5-14.5); RDW Standard Deviation 42.2 fL (36.4-46.3); Red Blood Count 3.37 M/uL (4.20-5.40); White Blood Count 5.45 K/ul (4.8-10.8)
[2023-11-15 06:54] LABS: Albumin Globulin Ratio 2.1 (0.9-2); Albumin Level 3.7 gm/dl (3.4-5.0); Bilirubin,Total 0.4 mg/dl (0.2-1.0); Calcium 8.1 mg/dl (8.6-10.3); Est GFR (African American) 125.1 ml/min; Globulin 1.8 gm/dl (2.5-4.0); Magnesium 1.9 mg/dl (1.7-2.4); Potassium 4.1 mmol/L (3.5-5.1); Total Protein 5.5 gm/dl (6.0-8.3)
--- NOTE | 2023-11-15 12:36 | Cardiology Progress Note ---
Date of Service November 15, 2023 Assessment & Plan (1) Pericarditis: (2) Chest pain: (3) WPW (Nvuvv-Iybqmfltb-Vvhvn syndrome): Plan IMPRESSION: 48-year-old female with history of Jkftr-Upyudulpo-Vgvnl with prior EP study, no ablation presents with new onset chest pain EKG revealing sinus bradycardia in the mid 50s with a short WA interval and delta wave. EKG unchanged from 2017. Telemetry unremarkable this admission PLAN: Although C-reactive protein levels were normal, clinical symptoms of chest discomfort that was worse with deep inspiration as well as mild diffuse J-point elevation noted on EKG consistent with pericarditis. ST segments back to normal on repeat EKG performed 11/14/2023. Echocardiogram revealed a trivial loculated anterior pericardial effusion, no regional wall motion abnormalities. SAVITA and rheumatoid factor screen pending. TSH within normal limits, viral respiratory panel within normal limits. Lyme screen was negative. Patient stable for discharge, continue colchicine 0.6 mg daily in morning, to finish 3-month course. Discharge on ibuprofen 400 mg p.o. every 8 hours with plans to taper to 200 mg every 8 hours after a week, and patient can self wean from there. Outpatient cardiology follow-up in 2 to 4 weeks for reassessment, consideration of follow-up Zio patch monitor at that time. Patient stable for discharge from cardiology perspective. Admission and Anticipated Discharge Date Admission Date: November 13, 2023 Subjective Patient seen in cardiology follow-up. Feels well. No recurrent or ongoing chest discomfort. Telemetry reveals sinus rhythm with rate in the range of 50 to 60 bpm. Physical Exam Constitutional: WD/WN, vitals as above no acute distress Eyes: PERRL, conjunctivae normal, anicteric sclerae ENMT: external ear and nose normal, oropharynx normal Neck: normal visual inspection and trachea midline Respiratory: normal respiratory effort, lungs clear to auscultation Cardiovascular: RRR, no murmur, no edema Heart Sounds: normal S1 and normal S2; no murmur Vessels: no JVD Gastrointestinal (Abdomen): normal bowel sounds, soft, nontender, no hepatosplenomegaly Skin: no rashes, warm and dry Neurologic: PERRL, EOMI, accommodation nl, no face palsy, no dysarthria Psychiatric: A+Ox3, euthymic affect Results & Data Vital Signs (Past 12 Hours) Vital Signs Temp Pulse Pulse Resp BP Pulse Ox O2 Del Method 11/15/23 07:36 36.8 C 59 L 18 107/68 94 Room Air 11/15/23 07:33 72 11/15/23 02:00 36.4 C L 57 L 16 100/63 98 Room Air (1) Pericarditis Pericarditis type: idiopathic Chronicity: acute Qualified Code(s): I30.0 - Acute nonspecific idiopathic pericarditis (2) Chest pain Chest pain type: unspecified Qualified Code(s): R07.9 - Chest pain, unspecified
--- NOTE | 2023-11-15 14:24 | Discharge Summary ---
Discharge Summary Date of Service November 15, 2023 Principal Dx & Hospital Course #1 = Principal Diagnosis (1) Chest pain: 48 year old mari female with history of WPW syndrome, prothrombin gene mutation, presenting with chest pain earlier today. Chest pain Pericarditis History of WPW syndrome history of CAD, maternal grandfather, age early 50s Reports chest pain was relieved by sublingual nitro given at the ER troponin x2 negative EKG no signs of acute ischemia or infarct Echocardiogram noting PFO, "trivial loculated pericardial effusion" Chest CTA no pE Cardiology consultation, appreciate recs -ordered labs in followup: CRP (wnl), Lyme screen (negative), viral panel (negative), TSH (wnl), SAVITA (pending), rheumatoid factor (pending) -Recommending treatment with taper of NSAIDs and colchicine 0.6 mg once daily. -Ibuprofen taper per Cardiology Dr Hodges: ibuprofen 400 mg p.o. every 8 hours with plans to taper to 200 mg every 8 hours after a week, and patient can self wean from there. -Continue colchicine daily for 3 months. -Outpatient cardiology follow-up in 2 to 4 weeks for reassessment, consideration of follow-up Zio patch monitor at that time per Cardiology. Continue PPI while on NSAIDs/colchicine PCP and cardiology follow up after discharge Hypokalemia Repleted as needed Notes For Next Care Provider Please ensure followup with cardiology after discharge in 2 to 4 weeks for reassessment, consideration of follow-up Zio patch monitor at that time per Cardiology. Medication Changes From Visit Per Cardiology: Colchicine 0.6mg daily x 3 months Ibuprofen taper: ibuprofen 400 mg p.o. every 8 hours with plans to taper to 200 mg every 8 hours after a week, and patient can self wean from there. Pantoprazole 40mg daily while on above Admission HPI Per Admitting Provider 48 year old for mari female with history fo WPW syndrome, prothrombin gene mutation, presenting with chest pain earlier today. As a background, patient has WPW syndrome for which an EP study was done in 2016 which suggested that the accessory bypass tract conduction was benign. She follows with Dr. Davis and Dr. Best at the [facility] cardiology clinic. As per patient, she normally has episodes of few seconds of palpitations daily without any accompanying symptoms. Earlier this evening, while preparing to leave the house, patient had a sudden onset of severe lower midsternal chest discomfort- sharp/pressure, associated with shortness of breath, nausea and dizziness to the point that she felt she was going to pass out. As the symptoms did not improve after about 10 minutes, the patient was brought to the ER for evaluation. At the ER, patient received with Blood pressure of 109/71, heart rate 65. EKG no signs of acute ischemia or infarct Troponin negative She was given 1 dose of sublingual nitro which relieved the chest pain. She also received aspirin 2024 mg. On exam, patient seen resting in bed, sitting up, comfortable,not in distress. She denies active chest pain, shortness of breath, palpitations, dizziness, nausea, abdominal pain during my interview. Of noted, the patient reports that she has been taking 2-3 doses of naproxen for the past 3 to 4 days for menstrual cramping and headache. Admission Exam Per Admitting Provider General- oriented x 3, not in distress, speaks in sentences with no effort or accessory muscle use Head- atraumatic Eyes- PERRL, EOMI, anicteric ENT- oropharynx clear Neck- supple, no JVD, no adenopathy, no thyromegaly; carotids +2/2, no bruits appreciated Lungs- clear to auscultation bilaterally, no rales/wheezes Heart- normal rate, regular rhythm; no murmur, no gallop, no rub appreciated Abdomen- normal bowel sounds, nondistended, soft, nontender, no masses or hepatosplenomegaly Extremities- no pretibial edema, no calf tenderness; peripheral pulses intact Neuro- alert, oriented x 3; CN 2-12 grossly intact; motor 5/5 bilaterall y;sensation 100% on all extremities; no other gross focal neurologic deficits Skin- warm & dry Discharge Exam General: Alert, oriented. No acute distress Skin: No noted rashes or bruises Psych: Appropriate mood and affect HEENT: NC/AT CV: RRR, chest pain reproducible in center Resp: Breath sounds clear bilaterally, no increased effort of breathing. Abdomen: Soft, nontender, nondistended. Extremities: No edema in lower extremities bilaterally. Updated Medication List Medication Instructions Recorded Confirmed Type cetirizine 10 mg tablet (Zyrtec) 10 mg PO DAILY PRN allergies 11/13/23 11/13/23 History multivitamin-ferrous 1 tab PO DAILY 11/13/23 11/13/23 History fumarate-folic acid 18 mg-400 mcg tablet (Centrum) sertraline 50 mg tablet 50 mg PO DAILY 11/13/23 11/13/23 History colchicine 0.6 mg tablet (Colcrys) 0.6 mg PO QAM #30 tabs 11/15/23 Rx ibuprofen 200 mg tablet See Rx Instructions .Route 11/15/23 Rx .COMPLEX #100 tabs pantoprazole 40 mg tablet,delayed 40 mg PO QAM #30 tabs 11/15/23 Rx release Hospital Stay Data Consultations 11/13/23 19:38 ED Decision to Admit Stat 11/13/23 20:45 Consult Cardiology Routine Diagnostic Imagining Performed 11/13/23 20:45 CT angio chest PE protocol Stat Chest X-Ray 11/13/23 17:47 XR chest 1V portable HISTORY: central chest pain COMPARISON: None. FINDINGS: The lungs are clear. Cardiac silhouette is normal in size. No pleural effusions. No pneumothorax. IMPRESSION: No acute process. ACT 112: Negative or not required by law. Electronically signed by: Colton Keith M.D. 11/13/2023 6:50 PM Chest CTA 11/13/23 20:45 CT angio chest PE protocol CLINICAL HISTORY: PE TECHNIQUE: Multidetector row helical CT of the chest was performed with angiographic protocol. Coronal and sagittal reformations were obtained. Coronal and sagittal MIPS were obtained from the axial data set and were submitted for review. Automated dose lowering techniques and/or adjustment according to patient size were utilized for this exam. CT DOSE: 461.61 mGy.cm Comparison: Comparison is made to chest radiograph 11/13/2023 FINDINGS: Lungs and pleura: Normal. Heart and pericardium: Heart size is normal. No pericardial effusion. Vessels: No evidence of pulmonary embolism. Mediastinum and criss: Unremarkable. Chest wall and lower neck: Unremarkable. Abdomen: Unremarkable. Bones: Degenerative changes in the thoracic spine. IMPRESSION: No acute abnormality and in particular no evidence of pulmonary embolus. ACT 112: Negative or not required by law. Electronically signed by: Gabriele Ronquillo M.D. 11/13/2023 10:19 PM Pending Results Patient Have Any Pending Studies at Discharge: Yes (SAVITA and rheumatoid factor) Discharge Instructions Given to Patient (Per Discharging Provider) Barbara, You were admitted with chest pain. You were seen by the [facility] and they diagnosed you with acute pericarditis. Cardiology recommends discharge home with the medication colchicine for 3 months. Your primary care provider can provide you refills as needed. They also recommend a taper of ibuprofen, they recommend the following. -take Ibuprofen 400mg every 8 hours for a week -then ibuprofen 200mg every 8 hours for a week -then self taper further DO NOT TAKE YOUR HOME ALEVE/NAPROXEN while taking the ibuprofen above. Please keep close followup with Cardiology after discharge. Please also keep close follow up with your primary care provider after discharge. Please do not hesitate to come back to the emergency room if your symptoms worsen or return. It was a pleasure taking care of you while you were here. Total Time Total Time Spent Total Time Spent (In Minutes): 75
--- OUTSIDE RECORDS SUMMARY | 2023-11-15 22:02 | External Medical Summary | Summary of Care ---
Author Name Unknown Organization [facility] Address [address] [place] [address] Phone [phone] Care Team Providers Care Supervisor Joiners Name Role Phone Katja Amor DO Primary Care Provider [phone] Encounter Details Date Type Department Care Team (Late st Contact Info) Description 11/14/2023 Telephone Cardiology, [facility] [address] [place] [id number] WarrenKalina holcomb CRNP [address] [place] [id number] Allergies No known active allergiesdocumented as of this encounter (statuses as of 11/14/2023) Medications Medication Sig Dispensed Refills Start Date End Date Status Multiple Vitamins-Minerals (MULTIVITAMIN ADULT) TABS Take by mouth daily. Active cyclobenzaprine (FLEXERIL) 5 MG TabletIndications:Chr onic tension-type headache, not intractable Take 1 Tab by mouth 3 times a day as needed for Muscle spasms. 10 Tab 03/26/2017 Active Sertraline HCl 50 MG Oral Tablet (Zoloft)Indications:G AD (generalized anxiety disorder) Take 1/2 tab daily x 1 week then increase to 1 tab daily. 30 Tablet 11 07/13/2023 Active documented as of this encounter (statuses as of 11/14/2023) Active Problems Problem Noted Date Diagnosed Date Prothrombin gene mutation 11/24/2021 Overview: heterogeneous Family history of antiphospholipid syndrome 10/14 Family history of prothrombin gene mutation 10/14 Palpitations 03/29/2015 WPW (Wkhuz-Ynxkevppy-Gtkap syndrome) 03/21/2015 documented as of this encounter (statuses as of 11/14/2023) Immunizations Name Administration Dates Next Due PPD 01/19/2018 Seasonal Influenza, PF, 6 M & above, IM , (FluLaval or Fluzone) 03/20/2023,02/28/2022,03/01/2021, 0 20,03/30/2019,03/31/2018,03/26/2017 Seasonal Influenza, Quadriva lent, No Preserve, IM 03/28/2016 Seasonal Influenza, Split, I IV3, With Preserve, Inj 03/17/2014 TDAP (age 10 and older)(Boostrix) 03/26/2017 documented as of this encounter Social History Tobacco Use Types Packs/Day Years Used Date Smoking Tobacco: Never Smokeless Tobacco: Never Alcohol Use Standard Drinks/Week Comments Yes 0 (1 standard drink = 0.6 oz pur e alcohol) rare PHQ-2 Answer Date Recorded PHQ Adult Total Score 0 07/13/2023 Hunger Vital Sign Answer Date Recorded Within the past 12 months, y ou worried that your food would run out before you got the money to buy more. Never true 09/28/19 21 Within the past 12 months, t he food you bought just didn't last and you didn't have money to get more. Never true 09/27/2020 Sex and Gender Information Value Date Recorded Sex Assigned at Female 11/09/2021 5:11 PM EDT Gender Identity Female 11/09/2021 5:11 PM EDT Sexual Orientation Straight 11/09/2021 5: 11 PM EDT Job Start Date Occupation Industry Not on file Not on file Not on file documented as of this encounter Miscellaneous Notes * Telephone Encounter - Kalina Kelley CRNP - 11/14/2023 10:14 AM EDT ERROR documented in this encounter Plan of Treatment Health Maintenance Due Date Last Done Comments HIV Screening 1991 Hepatitis C Screening 1994 Hepatitis B (1 of 3 - 19+ 3-dose series) 1995 Colonoscopy 2021 Fecal Occult Blood Test 2021 Sigmoidoscopy 2021 COVID-19 Vaccine ( - 2022-24 season) 2023 Mammogram 06/30/2024 06/30/2023, 06/14, 06/16/2021, Additional history exists Depression Screening 07/13/2024 07/13/2023 PAP SMEAR-EVERY 5 YRS,AGES 21-100 09/27/2025 09/27/2020, 05/21/2015, 05/21/2015, Additional history exists Cologuard 08/14/2026 08/15/2023 Colorectal Cancer Screening 08/14/2026 DTaP,Tdap,and Td Vaccines (2 - Td or Tdap) 03/26/2027 03/26/2017 Lipid Panel 07/13/2028 07/13/2023, 0609/2021, 03/29/2017 Cervical Cancer Screening Discontinued Pap Smear Discontinued 09/27/2020, 1201/2015, 05/21/2015, Additional history exists Influenza Vaccine (FLU shot) Completed 03/20/2023, 02/28/2022, 03/01/2021, Additional history exists GARDASIL-HPV IMMUNIZATION SERIES Aged Out No longer eligible based on patient's age to complete this topic HPV/Co-Test Discontinued MENINGOCOCCAL (MENACTRA/MENVEO) Aged Out No longer eligible based on patient's age to complete this topic Pneumococcal Vaccine: Pediatrics (0 to 5 Years) and At-Risk Patients (6 to 64 Years) Aged Out No longer eligible based on patient's age to complete this topic documented as of this encounter Medical Devices Not on filedocumented as of this encounter Visit Diagnoses Diagnosis WPW (Aleqm-Xunoggcxb-Jznlv syndrome)- Primary Anomalous atrioventricular excitation documented in this encounter Care Teams Supervisor Joiners Relationship Specialty Start Date End Date Katja Amor DO [address] [place] [id number] PCP - General Family Medicine 03/21/15 documented as of this encounter
[2023-11-16 17:52] LABS: Anti Nuclear Antibody Screen NEGATIVE (NEGATIVE); Rheumatoid Factor <10 IU/mL (<14)
--- NOTE | 2023-11-17 05:25 | Electrocardiogram Report ---
Test Reason : Blood Pressure : / mmHG Vent. Rate : 062 BPM Atrial Rate : 062 BPM P-R Int : 072 ms QRS Dur : 130 ms QT Int : 456 ms P-R-T Axes : 000 -33 063 degrees QTc Int : 462 ms Sinus rhythm with short NM Left axis deviation Non-specific intra-ventricular conduction block Ventricular pre-excitation, WPW pattern Possible Inferior infarct Abnormal ECG When compared with ECG of 14-NOV-2023 05:48, No significant change Confirmed by Sanchez Srivastava ([id number]) on 11/17/2023 5:24:37 AM Referred By: Katja Amor Confirmed By:Sanchez Srivastava
== END 2023-11-15 16:05 | disposition home or self-care (01) ==
LOC: ED 17:41 → EDINP 17:41 → SUATTDRO 20:05 → 2N 23:28